=== PATIENT | male | born 2000 | race African-American/Black ===

== ENCOUNTER 2024-09-19 08:06 | Emergency (ER) | payer OTHER, SELFPAY ==
[2024-09-19 08:06] VITALS: BP 132/97; PULSE 62; RESP 16; TEMP 36.6; O2SAT 98; BMI 22.8
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
--- NOTE | 2024-09-19 09:22 | ED.RN ---
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 charge nurse nakita made aware.
[2024-09-19 10:00] VITALS: BP 132/89; PULSE 55; RESP 16; TEMP 36.6; O2SAT 99
[2024-09-19] MEDS: Naproxen 500 MG Tablet PO (10:01)
== END 2024-09-19 10:05 | disposition home or self-care (01) ==
PROVIDERS: Emergency Provider Emergency Medicine; Visit Provider Emergency Medicine
DX: S40.011A Contusion of right shoulder, initial encounter (principal); M25.552 Pain in left hip; S20.229A Contusion of unspecified back wall of thorax, initial encounter; F17.210 Nicotine dependence, cigarettes, uncomplicated; S00.212A Abrasion of left eyelid and periocular area, initial encounter; V43.52XA Car driver injured in collision with other type car in traffic accident, initial encounter
CPT/HCPCS: 71101; 73030; 99284